=== PATIENT | female | born 1935 | race Caucasian/White ===

== ENCOUNTER → 2018-11-12 12:34 | Outpatient (CLI) | payer MEDICARE, BC, SELFPAY ==
--- NOTE | 2018-11-12 | DI.MRI.S_ITS ---
PROCEDURE: MR LUMBAR SPINE WO CON INDICATIONS: Low back pain TECHNIQUE: Noncontrast sagittal T1 spin echo and T2 fast echo, sagittal STIR, axial T1 and T2 fast spin echo through the lumbar spine. In cases with scoliosis, additional coronal T2 fast spin echo may be performed. COMPARISON: [facility] [place], [place], XR LUMBAR SPINE WITH OLBIQUES PLUS FLEXION EXTENSION, 11/07/2018, 13:31. FINDINGS: Image quality: Excellent. Alignment and Curvature: Transitional anatomy is noted with 6 age-lss-fvhgicc lumbar-type vertebral bodies. The most inferior lumbar type vertebral body is labeled as S1. There is mild to moderate dextroscoliosis centered at L3 level. No gross spondylolisthesis. Bone Marrow: Marrow is of normal overall signal. No acute vertebral body compression fractures. Spinal Cord: Conus medullaris terminates at the T12-L1 level. Visualized cord demonstrates normal signal and size. Paraspinous Soft Tissues: No paravertebral masses. L1-L2: There is significant loss of intervertebral disc space. There is right lateral disc herniation causing moderate to severe right sided central canal stenosis. Bulging disc likely contacting exiting right L1 nerve root at this level. Left lateral disc bulge is also seen causing mild to moderate left-sided neuroforaminal narrowing and mild compression of exiting left L1 nerve root. L2-L3: There is significant loss of intervertebral disc space and dorsal disc osteophyte complex formation. Broad-based disc bulge and bilateral facet arthrosis is seen causing mild central canal stenosis and mild right-sided neuroforaminal narrowing. L3-L4: There is significant loss of intervertebral disc space. Broad-based disc bulge and bilateral facet arthrosis is seen causing mild to moderate central canal stenosis and left worst than right bilateral neuroforaminal narrowing. Mild compression of left exiting L3 nerve root is seen at this level. L4-L5: There is diffuse disc bulge and bilateral facet arthrosis causing moderate central canal stenosis and moderate to severe bilateral neuroforaminal narrowing. Bulging disc is seen compressing the bilateral exiting L4 nerve roots. L5-S1: There is diffuse disc bulge and bilateral facet arthrosis with mild to moderate central canal stenosis and right worse than left bilateral neuroforaminal narrowing. Bulging disc likely compressing on exiting right L5. S1-S2: No significant disc bulge, canal stenosis or neuroforaminal narrowing. IMPRESSION: #1. 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 Most inferior lumbar type vertebral body is labeled as S1. #2. Tuyc-xc-orxtnwal dextroscoliosis centered at L3 level. #3. 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 Dictated by: Kahlil Shelby M.D. on 11/14/2018 at 8:49 Approved by: Kahlil Shelby M.D. on 11/14/2018 at 9:11
== END ==
PROVIDERS: Visit Provider Physical Medicine & Rehabilitation Pain Medicine
DX: M54.5 Low back pain (principal); M47.816 Spondylosis without myelopathy or radiculopathy, lumbar region; M47.817 Spondylosis without myelopathy or radiculopathy, lumbosacral region; M51.36 Other intervertebral disc degeneration, lumbar region; M51.37 Other intervertebral disc degeneration, lumbosacral region; M48.061 Spinal stenosis, lumbar region without neurogenic claudication; M48.07 Spinal stenosis, lumbosacral region; M41.86 Other forms of scoliosis, lumbar region
CPT/HCPCS: 72148